=== PATIENT | male | born 1970 | race Caucasian/White ===

== ENCOUNTER 2020-05-02 13:11 | Outpatient (CLI) | payer OTHER | END 2020-05-02 23:59 | disposition home or self-care (01) | LOC: RAD 13:11 | DX: K21.9 Gastro-esophageal reflux disease without esophagitis (principal); R13.12 Dysphagia, oropharyngeal phase; R49.0 Dysphonia; R47.1 Dysarthria and anarthria | CPT/HCPCS: 74230 ==